=== PATIENT | female | born 2000 | race Two or more races ===

== ENCOUNTER 2024-04-05 21:48 | Emergency (ER) | payer OTHER ==
[~2024-04-05] VITALS: Ht 160 cm; Wt 100.9 kg
[2024-04-06] MEDS ORDERED: ACET500T58 PO (02:07)
[2024-04-06 02:31] VITALS: BP 116/70; PULSE 96; RESP 19; TEMP 97.7; O2SAT 97
== END 2024-04-06 02:25 | disposition home or self-care (01) ==
LOC: ER 21:48
DX: S46.811A Strain of other muscles, fascia and tendons at shoulder and upper arm level, right arm, initial encounter (principal); Z79.899 Other long term (current) drug therapy; V43.52XA Car driver injured in collision with other type car in traffic accident, initial encounter; Y93.I9 Activity, other involving external motion; Y92.89 Other specified places as the place of occurrence of the external cause; Y99.8 Other external cause status